=== PATIENT | female | born 2000 | race Caucasian/White ===

== ENCOUNTER 2020-09-02 19:00 | Inpatient (IN) | payer BC, OTHER ==
[~2020-09-02 19:00] MED LIST: Bupivacaine 0.25% HCL 30 ML VIAL ONE
[2020-09-02 22:34] VITALS: BMI 34.0
[2020-09-02] MEDS ORDERED: Promethazine HCl 25 MG/ML VIAL IM PRN (22:49)
[2020-09-02] MEDS ORDERED: Docusate 100 MG CAP PO PRN (22:49)
[2020-09-02] MEDS ORDERED: Ondansetron PF 4 MG/2 ML Vial IVP PRN (22:49)
[2020-09-02] MEDS ORDERED: Ibuprofen 800 MG TAB PO PRN (22:49)
[2020-09-02] MEDS ORDERED: Acetaminophen 500 MG TAB PO PRN (22:49)
[2020-09-02] MEDS ORDERED: Misoprostol 200 MCG TAB PR PRN (22:49)
[2020-09-02] MEDS ORDERED: NS / Oxytocin 40 units/1000ml 1,000 ML IV PRN (22:49)
[2020-09-02] MEDS ORDERED: hydrALAZINE 20 MG/ML VIAL SLOW IVP PRN (22:49)
[2020-09-02] MEDS ORDERED: Lidocaine 1% (PF) 30 ML VIAL SC PRN (22:49)
[2020-09-02] MEDS ORDERED: NS w/ Oxytocin 30 units 500 ML IV PRN (23:14)
[2020-09-02] MEDS: Lactated Ringer's 1,000 ML IV SCH (23:15)
[2020-09-02] MEDS: Misoprostol 100 MCG TAB VAG SCH (23:27)
[2020-09-02 23:41] LABS: Hemoglobin 12.7 g/dL (12.0-15.5); Mean Corpuscular HGB CONC 33.5 g/dL (32.0-36.0); Mean Corpuscular Hemoglobin 29.6 pg (27.0-33.0); Mean Corpuscular Volume 88.3 fl (81.6-98.3); Platelet Count 184 10x3/uL (150-450); RBC Distribution Width 12.6 % (11.5-14.5); Red Blood Cell (RBC) Count 4.29 10x6/uL (3.90-5.03); White Blood Cell (WBC) Count 9.7 10x3/uL (3.5-10.5)
[2020-09-03 00:13] LABS: Hep B Surf Ag Non-Reactive S/CO (NonReactive); Syphilis Antibody Nonreactive (Nonreactive); Syphilis Antibody Index 0.04 S/CO (<1.00 Non-Reactive)
[2020-09-03 00:39] LABS: HBSAg Index 0.14 S/CO (0-0.99)
[2020-09-03] MEDS: Misoprostol 100 MCG TAB VAG SCH ×2 (02:51→23:54)
[2020-09-03] MEDS: Butorphanol Tartrate 1 MG/ML VIAL SLOW IVP PRN ×2 (06:38→08:20)
[2020-09-03] MEDS: NS w/ Oxytocin 30 units 500 ML IVPB SCH ×2 (06:46→20:09)
[2020-09-03] MEDS ORDERED: Fentanyl 4 mcg/Bup 0.1% Cadd 100 ML ONE ×2 (08:30→16:07)
[2020-09-03] MEDS ORDERED: Fentanyl 100 MCG/2 ML VIAL ONE (08:38)
[2020-09-03] MEDS ORDERED: ePHEDrine 50 MG/ML VIAL SLOW IVP PRN (09:38)
[2020-09-03] MEDS ORDERED: Acetaminophen 325 MG TAB PO PRN ×2 (09:38→19:41)
[2020-09-03] MEDS ORDERED: Ondansetron PF 4 MG/2 ML Vial IVP PRN ×2 (09:38→19:40)
[2020-09-03] MEDS ORDERED: Promethazine HCl 25 MG/ML VIAL IM PRN (09:38)
[2020-09-03] MEDS ORDERED: Naloxone HCl 0.4 mg/ml Vial IVP PRN ×2 (09:38)
[2020-09-03] MEDS ORDERED: Lactated Ringer's 500 ML IV PRN (09:38)
[2020-09-03] MEDS ORDERED: Eucerin (Mineral Oil/Petrolatum,White) 30 gm Jar TOP PRN (09:38)
[2020-09-03] MEDS ORDERED: diphenhydrAMINE 50 MG/ML VIAL IVP PRN (09:38)
[2020-09-03] MEDS ORDERED: Communication Order-Pharmacy FS SCH (09:45)
[2020-09-03] MEDS: Fentanyl 4 mcg/Bupivacaine 0.1% Cassette 100 ML EPIDURAL SCH ×2 (16:04→16:08)
[2020-09-03] MEDS ORDERED: Lanolin Ointment 7 GM TUBE TOP PRN (19:40)
[2020-09-03] MEDS ORDERED: Milk Of Magnesia 30 ML UDCUP PO PRN (19:40)
[2020-09-03] MEDS ORDERED: Adacel (T-DAP) 0.5 ML SYRINGE IM ONE (19:40)
[2020-09-03] MEDS ORDERED: Preparation H Ointment 28 GM TUBE PR PRN (19:40)
[2020-09-03] MEDS ORDERED: hydrALAZINE 20 MG/ML VIAL SLOW IVP PRN (19:40)
[2020-09-03] MEDS ORDERED: Benzocaine-Menthol 82.5 ML CAN TOP PRN (19:40)
[2020-09-03] MEDS ORDERED: Bisacodyl 10 MG SUPP PR PRN (19:40)
[2020-09-03] MEDS ORDERED: diphenhydrAMINE 25 MG CAP PO PRN (19:40)
[2020-09-03] MEDS ORDERED: Misoprostol 200 MCG TAB VAG PRN (19:40)
[2020-09-03] MEDS ORDERED: HYDROcodone/Acetaminophen 5/325 mg Tablet PO PRN (19:40)
[2020-09-03] MEDS ORDERED: Zolpidem Tartrate 5 MG TAB PO PRN (19:40)
[2020-09-03] MEDS ORDERED: Witch Hazel-Glycerin 1 EACH JAR TOP PRN (19:41)
[2020-09-03] MEDS ORDERED: NS / Oxytocin 40 units/1000ml 1,000 ML IV SCH (19:45)
[2020-09-03] MEDS: Lactated Ringer's 1,000 ML IV SCH (23:54)
[2020-09-03] MEDS: Ibuprofen 800 MG TAB PO SCH (23:59)
[2020-09-03] MEDS: Docusate Calcium (SURFAK) 240 MG CAP PO SCH (23:59)
[2020-09-04] MEDS: HYDROcodone/Acetaminophen 5/325 mg Tablet PO PRN ×2 (03:56→15:47)
[2020-09-04] MEDS: Ibuprofen 800 MG TAB PO SCH ×3 (05:12→22:14)
[2020-09-04 06:52] LABS: Hemoglobin 11.8 g/dL (12.0-15.5); Mean Corpuscular Hemoglobin 29.2 pg (27.0-33.0); Mean Corpuscular Volume 88.6 fl (81.6-98.3); Mean Platelet Volume 11.9 fl (7.4-10.4); Platelet Count 160 10x3/uL (150-450); RBC Distribution Width 12.5 % (11.5-14.5); Red Blood Cell (RBC) Count 4.04 10x6/uL (3.90-5.03); White Blood Cell (WBC) Count 15.1 10x3/uL (3.5-10.5)
[2020-09-04] MEDS: Prenatal Vitamin 1 TAB PO SCH (08:38)
[2020-09-04] MEDS: Docusate Calcium (SURFAK) 240 MG CAP PO SCH ×2 (08:38→22:18)
[2020-09-04] MEDS: Ferrous Sulfate 325 MG TAB PO SCH ×2 (09:15→15:20)
[2020-09-05] MEDS: Ibuprofen 800 MG TAB PO SCH (05:41)
[2020-09-05 07:52] VITALS: BP 121/72; TEMP 97.7
[2020-09-05] MEDS: Ferrous Sulfate 325 MG TAB PO SCH (08:50)
[2020-09-05] MEDS: Prenatal Vitamin 1 TAB PO SCH (08:51)
[2020-09-05] MEDS: Docusate Calcium (SURFAK) 240 MG CAP PO SCH (08:51)
== END 2020-09-05 12:35 | disposition home or self-care (01) | DRG 807 ==
LOC: CSHLD 21:52 → CSHPP 09-03 22:58
PROVIDERS: ADMIT Obstetrics & Gynecology; ATTEND Obstetrics & Gynecology
PROC: 10E0XZZ Delivery of Products of Conception, External Approach (ICD-10-PCS; principal; 2020-09-03)
PROC: 0HQ9XZZ Repair Perineum Skin, External Approach (ICD-10-PCS; 2020-09-03)
DX: O70.0 First degree perineal laceration during delivery (principal); Z37.0 Single live birth; Z3A.39 39 weeks gestation of pregnancy
CPT/HCPCS: 36415; 51702; 85027; 86780; 86850; 86900; 86901; 87340; J0595; J2405; J2550; J2590; S0020